=== PATIENT | female | born 1950 | race Caucasian/White ===

== ENCOUNTER 2019-03-01 12:58 | Emergency (ER) | payer MEDICARE, BC ==
[~2019-03-01] VITALS: Ht 167.6 cm; Wt 74.8 kg
[~2019-03-01 12:58] MED LIST: HYDR-4385 PO; ZOLP5TAB2 PO
--- NOTE | 2019-03-01 13:16 | NUR ---
Dr Vela at the bedside for MSE.
[2019-03-01 13:39] LABS: BASOPHILS % (AUTO) 0.5 % (0.0-2.0); EOSINOPHILS # (AUTO) 0.1 K/uL (0.0-0.7); EOSINOPHILS % (AUTO) 1.7 % (0.0-7.0); HEMATOCRIT 36.7 % (31.2-41.9); HEMOGLOBIN 12.6 g/dL (10.9-14.3); LYMPHOCYTES # (AUTO) 1.5 K/uL (20.0-40.0); LYMPHOCYTES % (AUTO) 29.7 % (20.5-51.5); MEAN CORPUSCULAR HEMOGLOBIN 33.1 uug (24.7-32.8); MEAN CORPUSCULAR HGB CONC 34 g/dL (32.3-35.6); MEAN CORPUSCULAR VOLUME 96.7 fL (75.5-95.3); MONOCYTES # (AUTO) 0.4 K/uL (2.0-10.0); MONOCYTES % (AUTO) 8.5 % (0.0-11.0); NEUTROPHILS # (AUTO) 3.1 K/uL (1.8-8.9); NEUTROPHILS % (AUTO) 59.6 % (38.5-71.5); PLATELET COUNT (AUTO) 195 K/uL (179-408); RED BLOOD CELL COUNT(AUTO) 3.79 MIL/uL (3.63-4.92); WHITE BLOOD COUNT (AUTO) 5.2 K/uL (3.8-11.8)
[2019-03-01 13:44] LABS: CREATININE 0.8 mg/dL (0.6-1.3); POTASSIUM 4.1 mmol/L (3.5-5.1)
[2019-03-01] MEDS ORDERED: SULFAMETH/TRIMETH 800/160 MG TABLET PO ONE (14:00)
[2019-03-01] MEDS ORDERED: SULFAMETH/TRIMETH 800/160 MG TABLET ONE (14:02)
[2019-03-01 14:16] VITALS: BP 157/75
--- NOTE | 2019-03-01 14:16 | NUR ---
Patient discharged to home in stable conditon. Written and verbal after care instructions given. Patient verbalizes understanding of instructions.
== END 2019-03-01 14:16 | disposition home or self-care (01) ==
LOC: ER 13:02
DX: L03.116 Cellulitis of left lower limb (principal); B37.3 Candidiasis of vulva and vagina; Z88.8 Allergy status to other drugs, medicaments and biological substances; Z79.899 Other long term (current) drug therapy
CPT/HCPCS: 36415; 85025; A4663

== ENCOUNTER 2022-08-06 10:56 | Emergency (ER) | payer BC, MEDICARE ==
[~2022-08-06] VITALS: Ht 167.6 cm; Wt 72.6 kg
--- NOTE | 2022-08-06 11:08 | NUR ---
Patient ambulated into room #4a with c/o dental infection/ pain to right side of face. States was sent from denist off to ER for IV medications. Patient is alert and orientedx4, no s/s of any distress noted at this time, will continue to monitor.
--- NOTE | 2022-08-06 11:10 | NUR ---
ER provider at bedside for exam, informed of plan of care.
[2022-08-06] MEDS ORDERED: CLINDAMYCIN PHOSPHATE IV 600 MG in IV DEXTROSE 5% 100 ML IV ONE (11:15)
[2022-08-06] MEDS ORDERED: CLINDAMYCIN 600 MG PIGGYBACK**ER OMNI IV ONE (11:22)
--- NOTE | 2022-08-06 12:10 | NUR ---
Patient IVF complete, awaiting Providers discharge instructions.
--- NOTE | 2022-08-06 12:16 | NUR ---
HL removed, remains stable for discharge home, ACI given at this time.
[2022-08-06 12:29] VITALS: BP 135/98
== END 2022-08-06 12:30 | disposition home or self-care (01) ==
LOC: ER 10:56
DX: K04.7 Periapical abscess without sinus (principal); R22.0 Localized swelling, mass and lump, head; G43.909 Migraine, unspecified, not intractable, without status migrainosus; Z88.8 Allergy status to other drugs, medicaments and biological substances; Z79.899 Other long term (current) drug therapy
CPT/HCPCS: 99284; 96365; J3490 ×2; A4663